=== PATIENT | female | born 1995 | race Caucasian/White ===

== ENCOUNTER 2018-06-28 03:52 | Emergency (ER) | payer OTHER ==
[~2018-06-28] VITALS: Ht 165.1 cm; Wt 81.6 kg
[2018-06-28 03:53] VITALS: BP 103/62
--- NOTE | 2018-06-28 03:58 | NUR ---
PT TO ED FOR PREBOOK. ETOH. NO OBVIOUS INJURY OR DEFORMITY. PMH--DENIES RX--DENIES
[2018-06-28 04:10] VITALS: BP 103/62
--- NOTE | 2018-06-28 04:10 | NUR ---
Patient discharged with v/s stable. Written and verbal after care instructions given and explained. Patient verbalized understanding. Police with in custody. All questions addressed prior to discharge. Advised to follow up with PMD. PATIENT BIB [facility] POLICE DEPT. PATIENT EXAMINED BY DR. FERNANDEZ. PATIENT MEDICALLY CLEARED AND RELEASED IN CUSTODY IN STABLE CONDITION. ORIGINAL PRE-BOOK FORM GIVEN TO OFFICER [place].
== END 2018-06-28 04:10 ==
LOC: MED 03:52
DX: F10.129 Alcohol abuse with intoxication, unspecified (principal); Z02.89 Encounter for other administrative examinations; V89.2XXA Person injured in unspecified motor-vehicle accident, traffic, initial encounter; Y93.89 Activity, other specified; Y92.89 Other specified places as the place of occurrence of the external cause; Y99.8 Other external cause status
CPT/HCPCS: 99283